=== PATIENT | male | born 1995 | race Hispanic/Latino ===

== ENCOUNTER 2019-02-15 12:11 | Emergency (ER) | payer OTHER ==
[2019-02-15] MEDS ORDERED: LIDOCAINE (1%) 10 MG/1 ML VIAL 20 ML MDV INFILTRATI ONE (12:39)
[2019-02-15] MEDS ORDERED: NEOMY 3.5 MG/BACIT 400 UNITS/POLY B 5000 UNITS/GM OINT PACKET TP ONE (12:39)
[2019-02-15] MEDS ORDERED: SODIUM CHLORIDE 0.9% IRR 500 ML BOTTLE IR ONE ×2 (12:39→14:35)
[2019-02-15] MEDS ORDERED: IBUPROFEN 600 MG TAB PO ONE (12:39)
[2019-02-15] MEDS ORDERED: TETANUS,DIPH,PERTUSS(ACELL) VACCINE 0.5 ML SYRINGE IM ONE (12:39)
--- NOTE | 2019-02-15 12:41 | Emergency Department Report ---
ED Laceration HPI - HPI Chief Complaint: Extremity Injury, Upper Stated Complaint: CUT RT HAND Time Seen by Provider: 02/15/19 12:39 Occurred When: Today Location: Upper Extremity Severity: severe Tetanus Status: Not up to Date Laceration Symptoms: Yes Pain, No Foreign Body Sensation, No Numbness, No Weakness Other History: 23 yo male comes to ER sp fall from ladder 4 feet. no loc. co lacerations to hand. no loc. no other complaints. ambulatory to ER. notified for pt is from out of town. ED Review of Systems ROS: Stated complaint: CUT RT HAND Other details as noted in HPI Comment: All other systems reviewed and negative ED Past Medical Hx - Past Medical History Previous Medical History?: No - Surgical History Past Surgical History?: Yes Additional Surgical History: surgery in the leg - Family History Family history: no significant - Social History Smoking Status: Current Every Day Smoker Substance Use Type: Alcohol - Medications Home Medications: Home Medications Medication Instructions Recorded Confirmed Last Taken Type Ibuprofen [Motrin] 800 mg PO Q8HR PRN #30 tablet 02/15/19 Unknown Rx cephALEXin [Keflex] 500 mg PO Q12HR #20 cap 02/15/19 Unknown Rx traMADol [Ultram] 50 mg PO Q6HR PRN #12 tablet 02/15/19 Unknown Rx Laceration Physical Exam - Exam General: Vital signs noted. No distress. Alert and acting appropriately. alert and oriented no focal def full rom r/ l wrist; shoulder and elbow rapid cap refill bitat dp plus 2 bilateral s1s2 lungs cta abd snt spine without tenderness mood and affect appropriate r finger lac- as noted in procedure r wrist small lac as noted in procedure abrasion l elbow Laceration Location: Upper Extremity Laceration Exam: Yes Normal Distal CMS, No Foreign Body, No Exposed Tendon, Vessel, or Nerve, No Tendon Injury - Laceration /Wound Repair r finger Wound Location: upper extremity Wound Length (cm): 6 Wound's Depth, Shape: irregular, flap, stellate, contused tissue Irrigated w/ Saline (ccs): 500 Betadine Prep?: Yes Anesthesia: 1% Lidocaine Volume Anesthetic (ccs): 15 Wound Debrided: moderate Wound Repaired With: sutures Suture Size/Type: 3:0 Number of Sutures: 13 Layer Closure?: No Sterile Dressing Applied?: Yes Progress: bleeding controlled on admit to ER wound cleaned bleeding recurred after wound cleaning hemastasis obtained NS given due to concern for vasovagal digital block with moderate relief local to the wound edges itself r hand Wound Location: upper extremity Irrigated w/ Saline (ccs): 1 Betadine Prep?: Yes Anesthesia: 1% Lidocaine Volume Anesthetic (ccs): 1 Wound Debrided: minimal Wound Repaired With: sutures Suture Size/Type: 3:0 Number of Sutures: 1 Layer Closure?: No Sterile Dressing Applied?: Yes ED Medical Decision Making - Radiology Data Radiology results: report reviewed, image reviewed elbow and hand xray noted - Medical Decision Making no loc ambulatory vss UDS for work Lab Results 02/15/19 Range/Units 15:30 Urine Opiates Screen Presumptive negative Urine Methadone Screen Presumptive negative Ur Barbiturates Screen Presumptive negative Ur Phencyclidine Scrn Presumptive negative Ur Amphetamines Screen Presumptive negative U Benzodiazepines Scrn Presumptive negative Urine Cocaine Screen Presumptive negative U Marijuana (THC) Screen Presumptive negative Drugs of Abuse Note Disclamer Vital Signs 02/15/19 16:46 Pulse Rate 66 Respiratory 14 Rate Blood Pressure 121/74 [Left] O2 Sat by Pulse 100 Oximetry wound cleaned medicated for pain tdap given ancef IV xray neg for fx full rom before and after suturing wound repaired- extensive wound repair see note NS IV given concern for presyncope during wound closure. Pt states he does not like needles. Became pale and HR inc to 100. dc home with family and detailed dc plan of care given he is from out of town. - Differential Diagnosis wound care Critical care attestation.: If time is entered above; I have spent that time in minutes in the direct care of this critically ill patient, excluding procedure time. ED Disposition Clinical Impression: Lacerations of multiple sites of right arm, Fall, Abrasion, Contusion Disposition: DC-01 TO HOME OR SELFCARE Is pt being admited?: No Does the pt Need Aspirin: No Condition: Stable Instructions: Suture Care (ED), Laceration (ED) Additional Instructions: KEEP WOUND CLEAN WITH SOAP AND WATER KEEP COVERED FOLLOW UP FOR SUTURE REMOVAL IN 7 DAYS FINGER -9 SIMPLE INTERRUPTED SUTURES AND 1 IN THE RIGHT WRIST ICE/ELEVATE THE HAND TONIGHT MEDS ORDERED TAKE UNTIL GONE Prescriptions: cephALEXin [Keflex] 500 mg PO Q12HR #20 cap Ibuprofen [Motrin] 800 mg PO Q8HR PRN #30 tablet PRN Reason: Pain, Moderate (4-6) traMADol [Ultram] 50 mg PO Q6HR PRN #12 tablet PRN Reason: Pain Referrals: PRIMARY CARE,MD [Primary Care Provider] - 3-5 Days Forms: Work/School Release Form(ED) Time of Disposition: 16:03
--- NOTE | 2019-02-15 13:16 | XRay Report ---
LEFT ELBOW HISTORY: Fall and left elbow pain. COMPARISON: None. TECHNIQUE: 3 views of the left elbow obtained. FINDINGS: Bones: No fracture or dislocation. Joint spaces: Maintained. Soft tissues: No significant abnormality. Additional findings: None. IMPRESSION: Normal study. Signer Name: Jaiden Ramírez MD Signed: 02/15/2019 1:12 PM Workstation Name: [id number]
--- NOTE | 2019-02-15 13:19 | XRay Report ---
RIGHT HAND HISTORY: Fall and cut with glass. COMPARISON: None. TECHNIQUE: 3 views of the right hand were obtained. FINDINGS: Bones: No fracture or dislocation. Joint spaces: Maintained. Soft tissues: There appears to be a laceration on the medial aspect of the proximal index finger. No foreign body and minimal soft tissue air. Additional findings: None. IMPRESSION: Soft tissue laceration but no evidence of retained glass or bony injury. Signer Name: Jaiden Ramírez MD Signed: 02/15/2019 1:15 PM Workstation Name: [id number]
[2019-02-15] MEDS ORDERED: SILVER NITRATE APPLICATOR 1 EA TP ONE ×2 (14:22→14:35)
[2019-02-15] MEDS ORDERED: SODIUM CHLORIDE 0.9% 1000 ML 1,000 ML ONE (14:22)
[2019-02-15] MEDS ORDERED: SODIUM CHLORIDE 0.9% 1000 ML 1,000 ML IV ONE (14:34)
[2019-02-15] MEDS ORDERED: cefTRIAXone/NS 1 GM/50 ML 1 GM/50 ML BAG IV ONE (15:11)
[2019-02-15] MEDS ORDERED: oxyCODONE /ACETAMINOPHEN 5-325MG TAB PO ONE (15:11)
[2019-02-15 16:00] LABS: Amphetamine Screen,Urine PRESUMPTIVE NEGATIVE; Benzodiazepines Screen,Urine PRESUMPTIVE NEGATIVE; Cannabinoid Screen,Urine PRESUMPTIVE NEGATIVE; Cocaine Screen,Urine PRESUMPTIVE NEGATIVE; Methadone Screen,Urine PRESUMPTIVE NEGATIVE; Opiate Screen,Urine PRESUMPTIVE NEGATIVE
[2019-02-15 16:47] VITALS: BP 121/74
== END 2019-02-15 16:46 | disposition home or self-care (01) ==
LOC: ED 12:11
DX: S51.811A Laceration without foreign body of right forearm, initial encounter (principal); F17.200 Nicotine dependence, unspecified, uncomplicated; W19.XXXA Unspecified fall, initial encounter; Y93.89 Activity, other specified; Y92.89 Other specified places as the place of occurrence of the external cause; Y99.8 Other external cause status
CPT/HCPCS: 36415; 73080; 73130; 80307; 90471; 90715; 96365; 99284; J0696; J7030; A6250